=== PATIENT | male | born 1990 | race Caucasian/White ===

== ENCOUNTER → 2018-08-26 13:55 | Outpatient (CLI) | payer OTHER, SELFPAY | PROVIDERS: Visit Provider Physician Assistant | DX: L02.91 Cutaneous abscess, unspecified (principal) | CPT/HCPCS: 87070; 87075; 87205 ==

== ENCOUNTER → 2018-09-06 07:27 | Outpatient (CLI) | payer OTHER, SELFPAY ==
[2018-09-06 07:59] LABS: Hematocrit 45.4 % (41-53); Hemoglobin 15.5 g/dL (13.5-17.5); Mean Corpuscular HGB Conc 34.2 % (30-36); Mean Corpuscular Hemoglobin 29.7 PG (26-34); Mean Corpuscular Volume 86.8 fL (80-100); Platelet Count 357 X10^3/uL (150-400); Red Blood Cell Count 5.23 X10^6/uL (4.5-5.9); Red Cell Distribution Width 14.1 % (11.6-14.8); White Blood Cell Count 7.4 X10^3/uL (4.5-11.0)
[2018-09-06 08:14] LABS: Alanine Aminotransferase 38 IU/L (21-72); Albumin 4.4 g/dL (3.5-5.0); Albumin Globulin Ratio 1.5 (1.0-2.8); Alkaline Phosphatase 75 U/L (38-126); Aspartate Aminotransferase 27 IU/L (17-59); BUN Creatinine Ratio 18.9 (6-22); Bilirubin Total 0.3 mg/dL (0.2-1.3); Blood Urea Nitrogen 17 mg/dL (9-20); Calcium 9.4 mg/dL (8.4-10.2); Carbon Dioxide 28 mmol/L (22-32); Chloride 104 mmol/L (98-107); Cholesterol 243 mg/dL (140-199); Estimated Glomerular Filt Rate > 60.0 mL/min (>60); Glucose 104 mg/dL (70-100); HDL Cholesterol 29 mg/dL (40-60); HEMOLYSIS < 15 (0-50); LDL Cholesterol Calculated 165 mg/dL (<100); Potassium 4.2 mmol/L (3.4-5.1); Sodium 141 mmol/L (137-145); Total Protein 7.4 g/dL (6.3-8.2); Triglycerides 247 mg/dL (35-150)
[2018-09-06 09:01] LABS: TSH w/ Reflex to FT4 2.78 uIU/mL (0.47-4.68)
[2018-09-06 09:24] LABS: HIV 1 and 2 Antibody NEGATIVE (NEGATIVE); Hep C Virus Ab w/Reflex Quant NEGATIVE s/c (NEGATIVE)
[2018-09-06 09:31] LABS: Urine N gonorrhoeae NOT DETECTED
[2018-09-06 09:33] LABS: Urine Chlamydia NOT DETECTED
[2018-09-08 16:24] LABS: Hepatitis A Antibody IgM NONREACTIVE (NONREACTIVE); Hepatitis Acute Panel Interp 0.01; Hepatitis B Core Antibody IgM NONREACTIVE (NONREACTIVE); Hepatitis B Surface Antigen NONREACTIVE (NONREACTIVE); Hepatitis C Antibody NONREACTIVE
[2018-09-09 08:33] LABS: Syphilis AB Cascading Reflex NEGATIVE (Negative)
[2018-09-09 15:40] LABS: HSV 1 IgM Screen Positive (Negative); HSV 2 IgM Screen Negative (Negative)
== END ==
PROVIDERS: Visit Provider Nurse Practitioner
DX: Z00.00 Encounter for general adult medical examination without abnormal findings (principal); Z11.3 Encounter for screening for infections with a predominantly sexual mode of transmission
CPT/HCPCS: 36415; 80053; 80061; 80074; 84443; 85027; 86695; 86696; 86703; 86780; 86803; 87491; 87591

== ENCOUNTER → 2018-10-03 12:57 | Outpatient (CLI) | payer OTHER, SELFPAY ==
--- NOTE | 2018-10-03 13:03 | DIET.PN ---
Dietary Progress Note Assessment: 28y here for advice for healthy eating to avoid getting Diabetes and to reduce cholesterol HT: 6'1 WT: 215# weight stable for 4-5y BMI: 28.4 (overweight) Labs: 09/06/18: BG 104 (H), Tri 247 (H), Chol 243 (H), LDL 165 (H), HDL 29 (L) Usual Intake: Shops and prepares meals for self. day off: 9:30am 30min eats breakfast: rivera, cheesy eggs, oatnut toast, sausage, 20oz oj noon: lunch- sandwich-ham turkey, cheese medium cheddar, lettuce, tomato, salas, water, juice, beer snacks: bags nuts, chips, gardettos, crunch salty snacks dinner 5-7pm biggest meal of day: steak, brats, grill foods, pizza, meat, sometimes rice or macncheese, mashed potatoes c gravy sn: ice cream 1-2x/w dislikes: mushrooms workday 5:30am 7am work, sometimes eats at 730, occ sometimes 9am-[employer] close [employer] at [employer] Lunch at noon: super hungry-[employer] salad recently (go to fast food quick but trying to change) no snacks-sometimes bag of chips from vending machine Dinner same as day off, super hungry. 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 Has opportunity to bring mini-fridge into work to stock with snacks/lunch. PA: no intentional PA but very physical job Drank Mountain Dew from high school until 2 mo ago- 8 cans per day. Switched to seltzer water recently after labs came back showing elevated fasting BG. Nutrition Diagnosis: Nutrition related knowledge deficit r/t healthy diet for health maintenence aeb verbally stating doesn't know what to eat, reporting <2 servings F/V daily, reliant on fast food during work days, and elevated BG, Cholesterol, Triglyceride labs. Interventions: Discussed role of fiber, betsy. soluble fiber in reducing cholesterol and managing BG, collaborated on foods to increase intake. Discussed good and excellent sources of fiber on food labels aiming for 3+g per serving. Discussed sugar sweetened beverage alternatives. Discussed saturated and unsaturated fats, ways to decrease daily saturated fat load including changing protein on sandwiches for lunch and reducing saturated fat/increasing fiber in breakfast. Brain stormed items to stock in mini fridge at work which will support health. Discussed role of PA in managing BG, focusing on 10 minutes of walking after meals. Monitoring/Evaluations: Pt Goals: Start eating beans more, whether black beans for breakfast or baked beans with dinner. Look at breads, find one with 3+ grams of fiber Each time you shop purchase 1 type of fruit and 1 type of veggie to eat that week Ice or other non-sweetened fizzy sandoval Choose roast beef, roast turkey or chicken, tuna, PB Will prioritize 10 minute walk after dinner Try to stick to 40 grams added sugar per day. Has mini-fridge at work which can be stocked: yogurts, cheese sticks, flavored fizzy sandoval, sandwich making supplies Consider Vitamin D test re: skin issues. Pt will schedule f/u w RD if needing further support.
== END ==
PROVIDERS: Visit Provider Nurse Practitioner
DX: E78.00 Pure hypercholesterolemia, unspecified (principal)
CPT/HCPCS: 97802

== ENCOUNTER → 2018-12-06 09:05 | Outpatient (CLI) | payer OTHER, SELFPAY ==
[2018-12-06 10:14] LABS: Alanine Aminotransferase 51 IU/L (21-72); Albumin 4.5 g/dL (3.5-5.0); Albumin Globulin Ratio 1.4 (1.0-2.8); Alkaline Phosphatase 76 U/L (38-126); Aspartate Aminotransferase 35 IU/L (17-59); Bilirubin Total 0.2 mg/dL (0.2-1.3); Blood Urea Nitrogen 20 mg/dL (9-20); Calcium 9.6 mg/dL (8.4-10.2); Carbon Dioxide 26 mmol/L (22-32); Chloride 105 mmol/L (98-107); Cholesterol 211 mg/dL (140-199); Estimated Glomerular Filt Rate > 60.0 mL/min (>60); Globulin 3.3 g/dL (1.7-4.1); Glucose 106 mg/dL (70-100); HDL Cholesterol 33 mg/dL (40-60); HEMOLYSIS < 15 (0-50); LDL Cholesterol Calculated 128 mg/dL (<100); Potassium 4.4 mmol/L (3.4-5.1); Sodium 140 mmol/L (137-145); Total Protein 7.8 g/dL (6.3-8.2); Triglycerides 251 mg/dL (35-150)
== END ==
PROVIDERS: Visit Provider Internal Medicine
DX: R73.9 Hyperglycemia, unspecified (principal); Z86.39 Personal history of other endocrine, nutritional and metabolic disease
CPT/HCPCS: 36415; 80053; 80061